=== PATIENT | female | born 2005 | race Caucasian/White ===

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

== ENCOUNTER 2023-01-02 13:12 | Emergency (ER) | payer MEDICAID, SELFPAY ==
[2023-01-02 13:13] VITALS: BP 146/82; PULSE 110; RESP 18; TEMP 36.9; O2SAT 99; BMI 27.3
--- NOTE | 2023-01-02 13:27 | EXP.UTC ---
Discharge Plan Disposition Patient Disposition: Home, Self-Care Condition: Good Prescriptions Prescriptions: New amoxicillin [amoxicillin] 875 mg tablet 875 mg PO Q12H Qty: 20 0RF iawzdhrozxqkbtk-rarrgcgwx-RA [Bromfed DM] 2-30-10 mg/5 mL Syrup 5 ml PO Q6H PRN (Reason: Cough) Qty: 240 0RF No Action cephalexin 500 mg capsule 500 mg PO QID 10 Days Qty: 40 0RF triamcinolone acetonide 0.1 % ointment 1 applic topical BID Qty: 15 0RF levonorgestrel-ethinyl estrad [Aviane] 0.1-20 mg-mcg tablet 1 tab PO DAILY Qty: 28 12RF Referrals Follow up/Referrals: Noe Esteves MD [Primary Care Provider] - See instructions Activity Restrictions/Add. Instructions Additional Instructions/Restrictions: Drink plenty of fluids. Take tylenol or ibuprofen for pain or fever. Take the medications as directed. Follow up with your regular doctor. GO TO THE ER FOR ANY WORSENING SYMPTOMS Throw your tooth brush away and get a new one. Clinical Impressions Clinical Impression: Strep throat Instructions Patient Instructions: Strep Throat, DI for Strep Throat Discharge ED Provider: Damon Garibay [facility] HPI General Stated complaint: sore throat, fever, bilateral ear pain Time Seen by Provider: 01/02/23 13:27 History of Present Illness Provider Complaint: She states that she has sore throat for the past 2 days. She has had a fever also. Related Data Previous Rx's Medication Instructions Recorded levonorgestrel-ethinyl estradiol 1 tab PO DAILY #28 tabs 06/18/22 0.1 mg-20 mcg tablet (Aviane) cephalexin 500 mg capsule 500 mg PO QID 10 days #40 caps 09/24/22 triamcinolone acetonide 0.1 % 1 applic topical BID #15 grams 09/24/22 topical ointment amoxicillin 875 mg tablet 875 mg PO Q12H #20 tabs 01/02/23 ruwairzwfifiqgx-woutntozlgjhyju-MK 5 ml PO Q6H PRN Cough #240 mL 01/02/23 2 mg-30 mg-10 mg/5 mL oral syrup (Bromfed DM) Allergies Allergy/AdvReac Type Severity Reaction Status Date / Time No Known Allergies Allergy Verified 09/24/22 10:12 [facility] Disclaimer: The information contained in this section may have been updated after the patient was seen, as this information can be updated by other users. Social History Smoking Status: Never smoker alcohol intake: never substance use type: denies use current occupational status: student Travel in the last 8 weeks: None ROS Obtained: Yes All systems reviewed & no additional complaints except as documented Constitutional Constitutional: Reports chills and Reports fever(s) Eyes Eyes: Denies eye discharge ENT Ears, Nose, Mouth, and Throat: Reports as per HPI Cardiovascular Cardiovascular: Denies chest pain Respiratory Respiratory: Denies chest congestion and Reports cough Gastrointestinal Gastrointestingal: Reports nausea; Denies abdominal pain, constipation, cramping, diarrhea or vomiting Musculoskeletal Musculoskeletal: Denies arthralgias Integumentary/Breasts Skin/Breast: Denies rash Neurologic Neurologic: Denies paresthesias Physical Exam General General appearance: alert and in no apparent distress Head Head exam: atraumatic, normocephalic and normal inspection Eye Eye exam: Present normal appearance, PERRL and EOMI ENT ENT exam: Present mucous membranes moist and normal external ear exam Expanded ENT Exam TM/Canal exam: Bilateral TM: erythema and bulging Nose exam: Absent sinus tenderness Mouth exam: Present normal external inspection; Absent drooling Teeth exam: Present normal inspection Throat exam: Present tonsillar erythema, tonsillomegaly and tonsillar exudate Neck Neck exam: Present normal inspection, full ROM and trachea midline; Absent tenderness, meningismus or lymphadenopathy Chest Chest inspection: Present normal inspection and symmetric chest wall rise; Absent tenderness Respiratory Respiratory exam: Present normal lung sounds bilaterally;
[2023-01-02 13:39] LABS: UTC Strep Screen (Rapid) Positive (Negative)
[2023-01-02 13:56] VITALS: BP 146/82; PULSE 110; RESP 18; TEMP 36.9; O2SAT 99
== END 2023-01-02 13:57 | disposition home or self-care (01) ==
PROVIDERS: Emergency Provider Nurse Practitioner Family; PCP Emergency Medicine
DX: J02.0 Streptococcal pharyngitis (principal); R50.9 Fever, unspecified
CPT/HCPCS: 87880; 99204; 99212; G0463

== ENCOUNTER → 2023-01-07 23:20 | Outpatient (CLI) | payer MEDICAID, SELFPAY | PROVIDERS: PCP Student in an Organized Health Care Education/Training Program; Visit Provider Student in an Organized Health Care Education/Training Program | DX: J02.0 Streptococcal pharyngitis (principal) | CPT/HCPCS: 87070 ==

== ENCOUNTER 2023-10-13 12:50 | Outpatient (CLI) | payer MEDICAID, SELFPAY | END 2023-10-13 23:59 | disposition home or self-care (01) | LOC: LAB.DROPOF 10-14 12:50 | PROVIDERS: PCP Student in an Organized Health Care Education/Training Program; Visit Provider Student in an Organized Health Care Education/Training Program | DX: U07.1 COVID-19 (principal); R50.9 Fever, unspecified | CPT/HCPCS: 87070; 87635 ==